=== PATIENT | male | born 1955 | race Caucasian/White ===

== ENCOUNTER 2016-12-12 07:01 | Emergency (ER) | payer BC, SELFPAY | END 2016-12-12 07:38 | disposition home or self-care (01) | LOC: BURERS 07:01 | DX: M62.838 Other muscle spasm (principal); E78.5 Hyperlipidemia, unspecified; E78.00 Pure hypercholesterolemia, unspecified; I10 Essential (primary) hypertension | CPT/HCPCS: 99283 ==

== ENCOUNTER 2017-07-07 11:27 | Emergency (ER) | payer BC ==
[2017-07-07] MEDS ORDERED: traMADol HCl 50 MG TAB ONE (12:04)
--- NOTE | 2017-07-07 17:22 | RAD ---
LEFT SHOULDER 3 VIEWS: Date: 07/07/17 No acute fracture or dislocation seen. There are no periarticular calcifications. The AC joint is no t widened. An old, healed fracture of the distal clavicle was visible. IMPRESSION: No acute findings. POS: HOME
== END 2017-07-07 12:08 | disposition home or self-care (01) ==
LOC: BURERS 11:27
DX: S40.012A Contusion of left shoulder, initial encounter (principal); E78.5 Hyperlipidemia, unspecified; I10 Essential (primary) hypertension; F17.220 Nicotine dependence, chewing tobacco, uncomplicated; Z79.899 Other long term (current) drug therapy

== ENCOUNTER 2018-09-18 08:15 | Emergency (ER) | payer BC ==
[2018-09-18 08:42] LABS: #Basophils 0.1 thou/uL (0.0-0.2); #Eosinphils 0.1 thou/uL (0.0-0.7); #Lymphocytes 2.3 thou/uL (1.20-3.40); #Monocytes 0.7 thou/uL (0.11-0.59); #Neutrophils 3.3 thou/uL (1.40-6.50); %Basophils 1.6 % (0.0-1.0); %Eosinophils 1.1 % (0.0-10.0); %Lymphocytes 36.1 % (21.0-51.0); %Monocytes 10.2 % (0.0-10.0); Hemoglobin 16.5 g/dL (14.0-18.0); Mean Corpuscular HGB CONC 35.3 g/dL (32.0-36.0); Mean Corpuscular Hemoglobin 31.4 pg (27.0-31.0); Mean Corpuscular Volume 88.9 fL (78.0-98.0); Mean Platelet Volume 6.6 fL (7.4-10.4); Platelet Count 256 thou/uL (130-400); RBC Distribution Width 11.8 % (11.5-14.5); Red Blood Cell (RBC) Count 5.25 mill/uL (4.70-6.10); White Blood Cell (WBC) Count 6.5 thou/uL (4.8-10.8)
[2018-09-18 08:57] LABS: Anion Gap 15 mmol/L (10-20); BUN (Urea Nitrogen) 11 mg/dL (8.4-25.7); Calc. Creatinine Clearance 0 mL/min (70-130); Calcium 9.3 mg/dL (7.8-10.44); Carbon Dioxide 23 mmol/L (23-31); Chloride 105 mmol/L (98-107); Estimated GFR-MDRD Greater than 90; Glucose 123 mg/dL (80-115); Potassium 3.9 mmol/L (3.5-5.1); Sodium 139 mmol/L (136-145)
[2018-09-18] MEDS ORDERED: Ibuprofen 800 MG TAB ONE (09:15)
== END 2018-09-18 09:17 | disposition home or self-care (01) ==
LOC: BURERS 08:15
DX: M62.838 Other muscle spasm (principal); E78.5 Hyperlipidemia, unspecified; F41.9 Anxiety disorder, unspecified; F17.220 Nicotine dependence, chewing tobacco, uncomplicated; Z79.899 Other long term (current) drug therapy
CPT/HCPCS: 36415; 80048; 85025; 85379; 99283

== ENCOUNTER 2021-01-24 15:22 | Emergency (ER) | payer BC ==
[~2021-01-24 15:22] MED LIST: Iopamidol 370 76% 100 ML VIAL ONE
[2021-01-24 16:38] LABS: #Basophils 0.1 thou/uL (0.0-0.2); #Lymphocytes 1.4 thou/uL (1.20-3.40); #Monocytes 0.9 thou/uL (0.11-0.59); #Neutrophils 14.2 thou/uL (1.40-6.50); %Basophils 0.4 % (0.0-1.0); %Eosinophils 0.3 % (0.0-10.0); %Lymphocytes 8.4 % (21.0-51.0); %Monocytes 5.6 % (0.0-10.0); %Neutrophils 85.4 % (42.0-75.0); Hemoglobin 19.1 g/dL (14.0-18.0); Mean Corpuscular HGB CONC 34.4 g/dL (32.0-36.0); Mean Corpuscular Volume 95.7 fL (78.0-98.0); Mean Platelet Volume 7.4 fL (7.4-10.4); Platelet Count 273 thou/uL (130-400); RBC Distribution Width 11.8 % (11.5-14.5); White Blood Cell (WBC) Count 16.7 thou/uL (4.8-10.8)
[2021-01-24 16:51] LABS: ALT (SGPT) 27 U/L (8-55); AST (SGOT) 24 U/L (5-34); Alkaline Phosphatase 49 U/L (40-110); Anion Gap 19 mmol/L (10-20); BUN (Urea Nitrogen) 16 mg/dL (8.4-25.7); Bilirubin, Total 0.5 mg/dL (0.2-1.2); Calc. Creatinine Clearance 0 mL/min (70-130); Calcium 8.6 mg/dL (7.8-10.44); Carbon Dioxide 18 mmol/L (23-31); Chloride 103 mmol/L (98-107); Glucose 192 mg/dL (80-115); Lipase 24 U/L (8-78); Potassium 3.8 mmol/L (3.5-5.1); Sodium 136 mmol/L (136-145)
[2021-01-24] MEDS ORDERED: Sodium Chloride 0.9% 100 ML ONE (17:14)
[2021-01-24] MEDS ORDERED: Cefepime 2 GM VIAL ONE (17:14)
[2021-01-24 19:00] LABS: Bilirubin Negative (Negative); Blood, Urine Negative (Negative); Clarity Clear (Clear); Glucose, Urine (Dipstick) Negative (Negative); Ketone, Urine Negative (Negative); Leukocyte Negative (Negative); Nitrite Negative (Negative); Protein, Urine (Dipstick) 30 mg/dL (Neg-Trace); Specific Gravity, Urine 1.015 (1.005-1.030); Urobilinogen 0.2 mg/dL (Less than 2); pH, Urine 8.5 (5.0-9.0)
[2021-01-24 19:21] LABS: Bacteria/HPF Rare-Few HPF (None Seen); RBC/HPF 0-3 HPF (0-3); Squamous Epithelial 0-3 HPF (0-3); WBC/HPF 0-3 HPF (0-3)
== END 2021-01-24 18:28 | disposition home or self-care (01) ==
LOC: BURERS 15:22
DX: A41.9 Sepsis, unspecified organism (principal); K56.609 Unspecified intestinal obstruction, unspecified as to partial versus complete obstruction; E78.5 Hyperlipidemia, unspecified; E78.00 Pure hypercholesterolemia, unspecified; I10 Essential (primary) hypertension; F17.220 Nicotine dependence, chewing tobacco, uncomplicated
CPT/HCPCS: 36415; 71045; 74177; 80053; 81003; 81015; 83605; 83690; 84484; 85025; 87040; 93005; 94760; 96365; 96367; J0692; J3370; J3490; Q9967

== ENCOUNTER 2022-12-12 00:55 | Emergency (ER) | payer MEDICARE, BC ==
[2022-12-12] MEDS ORDERED: Hydrochlorothiazide 25 MG TAB ONE (01:26)
[2022-12-12] MEDS ORDERED: Lorazepam 0.5 MG TAB ONE (01:31)
[2022-12-12 01:48] LABS: Calcium 9.2 mg/dL (7.8-10.44); Chloride 100 mmol/L (98-107); Potassium 3.7 mmol/L (3.5-5.1); Sodium 136 mmol/L (136-145)
[2022-12-12 01:53] LABS: #Basophils 0.1 thou/uL (0.0-0.2); #Eosinphils 0.1 thou/uL (0.0-0.7); #Lymphocytes 2.1 thou/uL (1.20-3.40); #Monocytes 0.6 thou/uL (0.11-0.59); #Neutrophils 3.5 thou/uL (1.40-6.50); %Basophils 1.3 % (0.0-1.0); %Lymphocytes 33.1 % (21.0-51.0); %Neutrophils 54.5 % (42.0-75.0); Hemoglobin 16.1 g/dL (14.0-18.0); Mean Corpuscular HGB CONC 36.1 g/dL (32.0-36.0); Mean Corpuscular Hemoglobin 33.9 pg (27.0-31.0); Mean Corpuscular Volume 93.8 fl (78.0-98.0); Mean Platelet Volume 7.2 fL (7.4-10.4); Platelet Count 229 10x3/uL (130-400); RBC Distribution Width 11.4 % (11.5-14.5); Red Blood Cell (RBC) Count 4.76 mill/uL (4.70-6.10); White Blood Cell (WBC) Count 6.3 10x3/uL (4.8-10.8)
[2022-12-12 02:09] LABS: Alkaline Phosphatase 43 U/L (40-110); Anion Gap 17 mmol/L (10-20); Bilirubin, Total 0.3 mg/dL (0.2-1.2); Calc. Creatinine Clearance 0 mL/min (70-130); Carbon Dioxide 21 mmol/L (23-31); Globulin 3.3 g/dL (2.4-3.5); Glucose 150 mg/dL (80-115); Protein, Total 7.3 g/dL (5.8-8.1)
[2022-12-12 12:49] LABS: BUN (Urea Nitrogen) 8 mg/dL (8.4-25.7)
[2022-12-12 12:52] LABS: Estimated GFR 100
[2022-12-12 13:10] LABS: ALT (SGPT) 32 U/L (8-55); AST (SGOT) 25 U/L (5-34)
== END 2022-12-12 02:17 | disposition home or self-care (01) ==
LOC: BURERS 00:55
DX: I10 Essential (primary) hypertension (principal); E78.00 Pure hypercholesterolemia, unspecified; F17.200 Nicotine dependence, unspecified, uncomplicated; Z79.899 Other long term (current) drug therapy; Z79.82 Long term (current) use of aspirin
CPT/HCPCS: 36415; 80053; 85025; 93005

== ENCOUNTER 2024-02-08 20:08 | Emergency (ER) | payer MEDICARE, BC ==
[2024-02-08] MEDS ORDERED: Lidocaine 1% PF 5 ML VIAL ONE (20:23)
[2024-02-08] MEDS ORDERED: Boostrix 0.5 ML (Tdap) VIAL (>/=7 yrs of age) ONE (20:24)
[2024-02-08] MEDS ORDERED: Triple Antibiotic Oint 1 GM Packet ONE (20:47)
== END 2024-02-08 21:10 | disposition home or self-care (01) ==
LOC: BURERS 20:08
DX: S01.81XA Laceration without foreign body of other part of head, initial encounter (principal); I10 Essential (primary) hypertension; F17.200 Nicotine dependence, unspecified, uncomplicated; W07.XXXA Fall from chair, initial encounter
CPT/HCPCS: 12013; 90715; 99283

== ENCOUNTER 2024-02-14 08:53 | Emergency (ER) | payer BC, MEDICARE | END 2024-02-14 09:09 | disposition home or self-care (01) | LOC: BURERS 08:53 | DX: S01.111D Laceration without foreign body of right eyelid and periocular area, subsequent encounter (principal); I10 Essential (primary) hypertension; F17.200 Nicotine dependence, unspecified, uncomplicated ==

== ENCOUNTER 2025-02-20 11:55 | Emergency (ER) | payer MEDICARE ==
[2025-02-20] MEDS ORDERED: Penicillin V Potassium 250 MG TAB ONE (12:35)
== END 2025-02-20 12:38 | disposition home or self-care (01) ==
LOC: BURERS 11:55
DX: K04.7 Periapical abscess without sinus (principal); L03.211 Cellulitis of face; I10 Essential (primary) hypertension; F17.200 Nicotine dependence, unspecified, uncomplicated
CPT/HCPCS: 99283